=== PATIENT | female | born 1960 | race Caucasian/White ===

== ENCOUNTER 2016-09-05 15:06 | Emergency (ER) | payer OTHER ==
[~2016-09-05 15:06] MED LIST: ALL DAY ALLERGY10 MG PO; ASPIR 8181 MG PO; CLARITIN 10MG T10 MG PO; COREG 12.5MG12.5 MG PO; IMDUR ER TAB 6060 MG PO; JANUVIA50 MG PO; LASIX TAB 20 MG20 MG PO; LASIX20 MG PO; LEVEMIR100 UNIT/1 SQ; LISINOPRIL40 MG PO; NEURONTIN 300300 MG PO; PLAVIX 75 MG TA75 MG PO; PROTONIX 20 MG20 MG PO; SYNTHROID175 MCG PO; ULTRAM50 MG PO; ZOCOR20 MG PO; ZYLOPRIM 100 M100 MG PO
[2016-09-05 19:12] LABS: HEMOGLOBIN 12.1 gm/dl (12.3-15.3); RED BLOOD COUNT 4.15 M/UL (4.00-5.10); WHITE BLOOD COUNT 5.3 K/UL (4.5-11.0)
== END 2016-09-05 22:47 | disposition home or self-care (01) ==
LOC: ER1 15:06
PROVIDERS: Emergency Medicine
DX: J10.1 Influenza due to other identified influenza virus with other respiratory manifestations (principal); J02.0 Streptococcal pharyngitis; I12.9 Hypertensive chronic kidney disease with stage 1 through stage 4 chronic kidney disease, or unspecified chronic kidney disease; E11.22 Type 2 diabetes mellitus with diabetic chronic kidney disease; E11.65 Type 2 diabetes mellitus with hyperglycemia; N18.9 Chronic kidney disease, unspecified; Z95.5 Presence of coronary angioplasty implant and graft
CPT/HCPCS: 36415; 71010; 80048; 83880; 84484; 85025; 87081; 87880; 93005; 94664; 96372; 99283; J0561

== ENCOUNTER → 2016-11-05 | Outpatient (CLI) | payer OTHER | LOC: HEART 5 09:39 | DX: I50.22 Chronic systolic (congestive) heart failure (principal); I25.5 Ischemic cardiomyopathy | CPT/HCPCS: 93306 ==

== ENCOUNTER 2020-08-10 12:37 | Inpatient (IN) | payer OTHER ==
[~2020-08-10] VITALS: Ht 160 cm; Wt 91.2 kg
[~2020-08-10 12:37] MED LIST changes: +CEPHALEXIN500 MG PO; +ELIQUIS 5 MG TAB5 MG PO; +HYDRALAZINE HCL50 MG PO; +KEFLEX CAP 500500 MG PO
[2020-08-10 15:22] LABS: HEMOGLOBIN 10.5 gm/dl (12.3-15.3); RED BLOOD COUNT 3.49 M/UL (4.00-5.10); WHITE BLOOD COUNT 17.9 K/UL (4.5-11.0)
[2020-08-10] MEDS ORDERED: ADMELOG SO100 UNIT/1 SC (20:14)
[2020-08-10] MEDS ORDERED: BASAGLAR K100 UNIT/1 SQ (20:15)
[2020-08-11 04:10] LABS: HEMOGLOBIN 9.8 gm/dl (12.3-15.3); RED BLOOD COUNT 3.29 M/UL (4.00-5.10); WHITE BLOOD COUNT 17.1 K/UL (4.5-11.0)
[2020-08-13 02:57] LABS: HEMOGLOBIN 8.5 gm/dl (12.3-15.3); RED BLOOD COUNT 2.85 M/UL (4.00-5.10); WHITE BLOOD COUNT 16.4 K/UL (4.5-11.0)
[2020-08-13] MEDS ORDERED: OMNICEF 300 MG300 MG PO (11:03)
[2020-08-13] MEDS ORDERED: DECADRON6 MG PO ×2 (11:03→11:12)
[2020-08-13] MEDS ORDERED: HUMALOG 10100 UNITS/ SC ×2 (11:03→11:10)
[2020-08-13] MEDS ORDERED: ZITHROMAX500 MG PO (11:10)
== END 2020-08-13 16:26 | disposition home or self-care (01) | DRG 177 ==
LOC: ER1 12:37 → CDU 17:28 → MED SURG 4 17:28
PROVIDERS: Physician Assistant Medical; ADMIT Internal Medicine
PROC: XW13325 Transfusion of Convalescent Plasma (Nonautologous) into Peripheral Vein, Percutaneous Approach, New Technology Group 5 (ICD-10-PCS; principal; 2020-08-10)
PROC: 8E0ZXY6 Isolation (ICD-10-PCS; 2020-08-10)
DX: U07.1 COVID-19 (principal); J12.82 Pneumonia due to coronavirus disease 2019; J96.01 Acute respiratory failure with hypoxia; N18.6 End stage renal disease; J15.9 Unspecified bacterial pneumonia; I12.0 Hypertensive chronic kidney disease with stage 5 chronic kidney disease or end stage renal disease; F11.20 Opioid dependence, uncomplicated; E11.22 Type 2 diabetes mellitus with diabetic chronic kidney disease; Z99.2 Dependence on renal dialysis; K21.9 Gastro-esophageal reflux disease without esophagitis; Z79.4 Long term (current) use of insulin; G89.29 Other chronic pain; M54.9 Dorsalgia, unspecified; D72.829 Elevated white blood cell count, unspecified; Z86.718 Personal history of other venous thrombosis and embolism; Z79.01 Long term (current) use of anticoagulants; Z79.899 Other long term (current) drug therapy; Z79.82 Long term (current) use of aspirin; Z95.810 Presence of automatic (implantable) cardiac defibrillator; G62.9 Polyneuropathy, unspecified; E87.6 Hypokalemia; G47.33 Obstructive sleep apnea (adult) (pediatric)
CPT/HCPCS: 36415; 36600; 71045; 80048; 80053; 82550; 82553; 82803; 82962; 83605; 83735; 83874; 84484; 85007; 85025; 85027; 85652; 86140; 86900; 86901; 87040; 96365; 96372; 96375; 97110; 97162; 99285; J0456; J0696; J1100; J7030; U0002